=== PATIENT | female | born 1945 | race African-American/Black ===

== ENCOUNTER → 2018-03-01 | Outpatient (CLI) | payer OTHER ==
[~2018-03-01] VITALS: Ht 152.4 cm; Wt 75.8 kg
[~2018-03-01] MED LIST: GABAPENTIN 100100 MG PO; KLOR-CON 1010 MEQ PO; LIPITOR10 MG PO; LISINOPRIL-HCT1 EAC2 PO; NORVASC2.5 MG PO; VITAMIN D350000 UNIT PO
--- NOTE | ~2018-03-01 | PATH ---
[facility] [place] [address] PATHOLOGY RPT PROCEDURE Name: JASSI HERNANDEZ Room #: REG [facility] M.Radha.#: [id number] Admission: 03/01/18 Date of : 47 Discharge: Report #: [id number] Path Case #: [id number] [facility] Accession Number: [id number] . 01 Material submitted: . PART A: GASTRITIS PART B: COLON POLYP 60CM BIOPSY . 01 Clinical history: . History of colon polyps, abdominal pain, gastritis, duodenitis, hiatal hernia, colon polyp, Vasquez's ring +2. . 02 Diagnosis: A. Gastric biopsy, "gastritis rule out H. pylori": - Mild chronic reactive gastropathy with mild chronic inflammation. - There is no evidence of acute cryptitis, granulomas, adenomatous change, or malignancy. - The immunoperoxidase stain for Helicobacter pylori is negative. . B. Colonic mucosa, "colon polyp at 60 cm": - Consistent with early tubular adenoma. - There is no evidence of high-grade dysplasia or malignancy. (JUS:; 03/02/18) QRQ/03/02/2018 . 02 Electronically signed: . Joyn Powell MD, Pathologist NPI- [id number] . 01 Gross description: . A. Received in formalin labeled "Jassi Hernandez, gastritis rule out H. pylori biopsy is a 1.5 x 0.3 x 0.2 cm aggregate of hernandez-brown soft tissue fragments. The specimen is submitted in cassette A1. . B. Received in formalin labeled "Jassi Hernandez, colon polyp 60 cm biopsy" is a 0.5 x 0.3 x 0.1 cm fragment of hernandez-brown soft tissue. The specimen is submitted in cassette B1. ([facility]; 03/01/2018) SYC/SYC . 02 Pathologist provided ICD-10: K29.50, K31.9, D12.2 . 02 CPT . 513395, 729163, [id number] Performed at: [address] [facility] [address], [place] [id number] [place] [address] PATHOLOGY RPT PROCEDURE Name: JASSI HERNANDEZ Room #: REG CLGeno Lock#: [id number] Admission: 03/01/18 Date of : 47 Discharge: Report #: [id number] Path Case #: [id number] MD Tomas Araiza MD Phone: [phone] Performed at: [address] [id number] MD Mitra Villavicencio MD Phone: [phone]
--- NOTE | ~2018-03-01 | P ---
[facility] [place] [address] PROCEDURE REPORT Name: JASSI HERNANDEZ Room #: REG [facility].#: [id number] Admission: 03/01/18 Attend Phys: Bob Moore MD Discharge: Date of : 47 Report #: [id number] THIS REPORT FOR: //name// CC: Bob Murillo MD OUTPATIENT COLONOSCOPY REPORT BRIEF HISTORY: The patient is a 72-year-old woman with a history of colon polyps and last colonoscopy was about 9 years ago per her report. PREOPERATIVE DIAGNOSIS: High risk screening colonoscopy due to history of colon polyp. POSTOPERATIVE DIAGNOSIS: Diminutive polyp at 60 cm. MEDICATIONS: Deep sedation with propofol per Anesthesia. SPECIMEN: Polyp from 60 cm. ESTIMATED BLOOD LOSS: 3 mL. PROCEDURE: Colonoscopy to cecum and terminal ileum with biopsy. FINDINGS: Prior to propofol sedation, the procedure of colonoscopy was discussed with the patient as well as potential risks and its complications. She indicates she understands and desires to proceed. DESCRIPTION OF PROCEDURE: With the patient in left lateral decubitus position, a digital examination was completed, which revealed no abnormalities. Subsequently, an Olympus video colonoscope was introduced in the rectum, advanced under direct vision to the cecum. Done with minimal difficulty. The cecum was identified by the ileocecal valve and the appendiceal orifice. I was able to visualize the distal segment of terminal ileum, which was inspected and noted to be unremarkable. At that point, the scope was slowly withdrawn and careful circumferential views were obtained. Upon slow withdrawal of the scope, the prep was generally good, but there was some bilious material remained throughout the colon and we cleaned this up as well as possible. Overall, a reasonably good prep was obtained. As we withdrew the scope, the mucosa was within normal limits, normal vascular pattern, normal light reflex. No mucosal abnormalities were seen until about 60 cm in the descending colon, a diminutive polyp was seen and removed by biopsy. Scope was further withdrawn and no additional polyps were seen. Scope was withdrawn in the rectum. Upon retroflexion, no abnormalities were seen. The scope was withdrawn. The patient tolerated the procedure well. [facility] [address] [place] [address] PROCEDURE REPORT Name: MARYJASSI Room #: REG [facility].#: [id number] Admission: 03/01/18 Attend Phys: Bob Moore MD Discharge: Date of : 47 Report #: [id number] CONDITION OF THE PATIENT UPON DISCHARGE: Following the procedure, the patient was drowsy, arousable and conversant and will be discharged home when fully ambulatory. INSTRUCTIONS TO THE PATIENT AND FAMILY AT THE TIME OF DISCHARGE: We will follow up on the path of the polyp. If the polyp is an adenoma, she will return in 5 years; if not adenoma, then in 10 years would be indicated. She will otherwise return to care of Dr. Cristiano Murillo and return to see me as needed. Last colonoscopy was approximately 9 years ago. Withdrawal time from the cecum was 17 minutes 6 seconds. By: [id number] Bob Moore MD /nt
--- NOTE | ~2018-03-01 | P ---
[facility] [place] [address] PROCEDURE REPORT Name: JASSI HERNANDEZ Room #: REG [facility]#: [id number] Admission: 03/01/18 Attend Phys: Bob Moore MD Discharge: Date of : 47 Report #: [id number] THIS REPORT FOR: //name// CC: Bob Murillo MD DATE OF SERVICE: 03/01/2018 BRIEF HISTORY: The patient is a 72-year-old woman with complaints of left upper quadrant pain. She also has trouble swallowing, says that food goes down slowly. PREOPERATIVE DIAGNOSES: Upper abdominal pain and dysphagia for solids. POSTOPERATIVE DIAGNOSES: 1. Esophageal rings x 2. 2. Small hiatus hernia. 3. Diffuse gastritis. 4. Small amount of retained bilious material in stomach. 5. Deformed antrum suggestive of prior peptic ulcer disease. 6. Duodenitis. MEDICATIONS: Deep sedation with propofol per anesthesia. SPECIMEN: Biopsies of gastritis. ESTIMATED BLOOD LOSS: 3 mL. PROCEDURE: EGD with biopsy, Frias dilation. FINDINGS: With the patient in left lateral decubitus position, the Olympus video endoscope was inserted in the cervical esophagus under direct vision without difficulty. Examination of this organ through its entire length revealed normal esophageal mucosa down to the squamocolumnar junction. As we advanced the scope into the distal esophagus, 2 rings were seen in the distal esophagus, one right at the squamocolumnar junction and the other a cm or so proximal. These were mild rings and no tight strictures were seen. No masses were seen. I do not see evidence of ulcers, erosions or esophagitis. In addition, a small hiatus hernia was noted as well. Scope was advanced into the stomach, was examined on end view as well as retroflexed views. There was some bile staining in the antrum, but there was no evidence of significant amount of retained solids or liquids in the stomach. No ulcers were seen. Scattered erosions were seen. There was some deformity in the antrum suggestive of prior ulcer disease, but an active ulcer crater was not seen. The pylorus, duodenal bulb and postbulbar duodenal sweep were inspected and noted to be unremarkable [facility] [address] [place] [address] PROCEDURE REPORT Name: JASSI HERNANDEZ [id number] Admission: 03/01/18 Attend Phys: Bob Moore MD Discharge: Date of : 47 Report #: [id number] with the exception of patchy bulbar duodenitis. At that point, the scope was slowly withdrawn and careful circumferential views confirmed the above findings. The patient tolerated the procedure well. Biopsies obtained of the gastritis. She was subsequently dilated with passage of 52-[place] Frias dilator. There was no resistance. CONDITION OF THE PATIENT UPON DISCHARGE: Following the procedure, the patient was drowsy. She was then prepared for colonoscopy. INSTRUCTIONS TO THE PATIENT AND FAMILY AT THE TIME OF DISCHARGE: We will place the patient on omeprazole 20 mg daily for at least 6 weeks and then if needed, she may taper thereafter. She may have reflux disease causing her symptoms. I am also suspicious she has had ulcers in the past and we will follow up on the biopsies with regard to H. pylori. She is to return for dilation on an as-needed basis if she has recurrent symptoms of dysphagia. We will proceed with colonoscopy at this time. By: [id number] Bob Moore MD /nt
== END | disposition home or self-care (01) ==
LOC: GI 09:03
DX: Z12.11 Encounter for screening for malignant neoplasm of colon (principal); Z86.010 Personal history of colon polyps; K44.9 Diaphragmatic hernia without obstruction or gangrene; K22.2 Esophageal obstruction; K29.50 Unspecified chronic gastritis without bleeding; K63.5 Polyp of colon; F17.210 Nicotine dependence, cigarettes, uncomplicated; I10 Essential (primary) hypertension; E78.00 Pure hypercholesterolemia, unspecified; K21.9 Gastro-esophageal reflux disease without esophagitis; M19.90 Unspecified osteoarthritis, unspecified site; Z90.49 Acquired absence of other specified parts of digestive tract; Z86.73 Personal history of transient ischemic attack (TIA), and cerebral infarction without residual deficits; Z98.890 Other specified postprocedural states
CPT/HCPCS: 62110; 62900